=== PATIENT | female | born 1955 | race African-American/Black ===

== ENCOUNTER 2017-07-24 10:01 | Emergency (ER) | payer OTHER ==
[~2017-07-24] VITALS: Ht 167.6 cm; Wt 72.7 kg
[~2017-07-24 10:01] MED LIST: ASPI81TA42 PO; CLON2 PO; CYCL10 PO; GABA-531 PO; LISI20TA PO; METF500T4 PO; ZOLP10TA7 PO
[2017-07-24 10:13] LABS: GLUCOSE,POINT OF CARE 125 MG/DL (70-110)
[2017-07-24 10:15] VITALS: BP 133/69
[2017-07-24] MEDS ORDERED: KETOROLAC TROMETHAMINE 60 MG/2 ML VIAL IM ONE (10:30)
[2017-07-24] MEDS ORDERED: HYDROCODONE/ACETAMINOPHEN 5-325 MG TABLET PO ONE (10:30)
== END 2017-07-24 12:04 | disposition home or self-care (01) ==
LOC: EMS 10:04
DX: S39.012A Strain of muscle, fascia and tendon of lower back, initial encounter (principal); H66.92 Otitis media, unspecified, left ear; H61.22 Impacted cerumen, left ear; E11.9 Type 2 diabetes mellitus without complications; I10 Essential (primary) hypertension; W10.9XXA Fall (on) (from) unspecified stairs and steps, initial encounter; Y93.89 Activity, other specified; Y92.89 Other specified places as the place of occurrence of the external cause; Y99.8 Other external cause status
CPT/HCPCS: 69209; 72100; 82962; 96372; 99284; J1885